=== PATIENT | male | born 1955 | race Asian ===

== ENCOUNTER 2019-05-24 06:29 | Day surgery (SDC) | payer OTHER ==
[2019-05-24] MEDS ORDERED: SOD CHLORIDE 0.9% 1,000 ML IV (07:30)
[2019-05-24] MEDS ORDERED: CEFAZOLIN 2 GM/50 ML (PMX) 50 ML IVPB (07:30)
[2019-05-24] MEDS ORDERED: OXYCODONE/ACETAMINOPHEN (5/325) TAB PO ×2 (09:30)
[2019-05-24] MEDS ORDERED: HYDROmorphONE 1 MG/5 ML IV SYRINGE IV ×3 (09:30)
[2019-05-24] MEDS ORDERED: ONDANSETRON 4 MG INJ IV (09:30)
[2019-05-24] MEDS ORDERED: MEPERIDINE 25 MG INJ IV (09:30)
[2019-05-24] MEDS ORDERED: DIPHENHYDRAMINE 50 MG INJ IV (09:30)
[2019-05-24] MEDS ORDERED: FENTAnyl 50 MCG/ML VIAL IV ×3 (09:30)
[2019-05-24] MEDS ORDERED: CEFAZOLIN 1 GM INJ (09:31)
[2019-05-24] MEDS ORDERED: PROPOFOL 20 ML (09:31)
[2019-05-24] MEDS ORDERED: FENTAnyl 50 MCG/ML VIAL (09:31)
[2019-05-24] MEDS: LIDOCAINE 2% (MDV) 20 ML INJ (10:06)
[2019-05-24] MEDS: BUPIVACAINE 0.5% (SDV) 30 ML INJ (10:06)
[2019-05-24] MEDS: HYDROCODONE/APAP (5/325) TAB PO (10:35)
== END 2019-05-24 11:17 | disposition home or self-care (01) ==
LOC: SDS 06:29
DX: L72.0 Epidermal cyst (principal)
CPT/HCPCS: 14000; 88307